=== PATIENT | male | born 1985 | race Caucasian/White ===

== ENCOUNTER → 2025-06-15 16:29 | Outpatient (REF) | payer OTHER, SELFPAY | LOC: RAD 16:29 | PROVIDERS: ATTENDING PHYSICIAN Physician Assistant | DX: R10.A1 Flank pain, right side (principal) | CPT/HCPCS: 72072; 72110 ==

== ENCOUNTER 2025-08-04 18:35 | Emergency (ER) | payer OTHER, SELFPAY ==
[2025-08-04 18:37] VITALS: BP 121/73
--- NOTE | 2025-08-04 19:20 | ED.GENMED ---
History of Present Illness
General
Chief Complaint: Male Genito-Urinary Symptoms
Source: patient
Time Seen by Provider: 08/04/25 19:11
History of Present Illness
History of Present Illness:
39-year-old male presents to the emergency room complaining of pain, swelling to the right testicle. Patient had a vasectomy about [address] Hoang. Yesterday while playing with his daughter she inadvertently bumped into his right
testicle. He had some minor pain at the time but really did not think much of it. During the night he began having more pain and noted some swelling. He went to work today but was having significant discomfort throughout the day. This prompted
him to come to the emergency room for further evaluation. Patient denies any medical problems. Does not take any medications.
Past History
Past History
ED Past Medical History: None
ED Past Surgical History: None
Social History
Tobacco: Non-smoker
Alcohol: None
Personal:
Living: with family
Employment: Employed
Phy Exam
Physical Exam
Physical Exam:
General: Awake, Alert, Oriented X3. No acute distress.
Vitals: unremarkable
Head: Atraumatic
Eyes: Pupils equal, EOMI
Neck: Trachea midline
Abd: Soft, Nontender, No pulsatile mass
Genitalia: Penis appears normal. Left hemiscrotum appears normal. Right hemiscrotum does have some erythema and redness. Perhaps some mild ecchymosis. The testicle itself feels enlarged and is moderately tender.
Neuro: Nonfocal
Skin: Warm, dry, no rash
Extremities: pulses equal b/l, no edema
Course
Orders/Labs/Results
Orders:
Orders
08/04/25 19:19
US Scrotum Urgent
Comment:
Reason For Exam: pain/swelling r testicle minor trauma rec vasectom
08/04/25 19:20
Ibuprofen [Motrin] 400 mg PO NOW STA
Vital Signs
Initial and Last Documented VS:
Initial Vital Signs
Temp Pulse Resp BP Pulse Ox
98.0 F 88 16 121/73 98
08/04/25 18:37 08/04/25 18:37 08/04/25 18:37 08/04/25 18:37 08/04/25 18:37
Last Documented Vital Signs
Temp Pulse Resp BP Pulse Ox
98.0 F 79 16 124/77 99
08/04/25 18:37 08/04/25 19:23 08/04/25 18:37 08/04/25 19:23 08/04/25 19:23
MDM/Problems Addressed
Differential Diagnosis Includes:
Scrotal hematoma, fractured testicle, epididymal cyst, hydrocele
MDM/Problems Addressed:
Patient presents with scrotal pain. His exam shows some enlargement discomfort of the right testicle. Ultrasound shows no acute abnormality. Treat with Tylenol, Motrin, supportive underwear. Follow-up with the discharge if no better in the next
2 or 3 days.
*Radiology
Radiology exam reviewed: radiology read reviewed
*Pulse Oximetry
SaO2: 98
Oxygen Mode of Delivery: Room air
Patient hypoxic: no
*Critical Care Note
Total Time (30-74mins, 75-104mins- exclusive of procedures): Not Applicable
ED Attending Note
-
Portions of this chart may have been created with voice recognition software.� Occasional wrong word or��sound alike� substitutions may have occurred due to the inherent limitations of voice recognition software.
Discharge Plan
Departure
Patient Disposition: Home (Routine Discharge)
Date of Disposition: 08/04/25
Time of Disposition: 20:19
Patient with high blood pressure during this ER visit?: No
Condition: Good
Discharge Problem:
Contusion of scrotum
Instructions: Testicular Injury
Prescriptions:
No Action
No Current Medications
0
Referrals:
Boubacar Pizarro MD [Family Provider, Family Practice]
Eagle Hoang MD [Active, Urology]
Activity Restrictions/Additional Instructions:
follow up with dr. Hoang if the pain is not improving over the next couple of days.
Interventions
Interventions:
*General Assessment Last Done: 08/04/25 18:37
*Neglect/Abuse Screening Last Done: 08/04/25 18:37
*ED COVID-19 Vaccine History Last Done: 08/04/25 18:37
*ED Influenza Vaccine History Last Done: 08/04/25 18:37
[facility] Risk Assessment Tool Last Done: 08/04/25 19:21
*Risk Screen - Suicide (C-SSRS) Last Done: 08/04/25 19:16
*Nursing Disposition Last Done: 08/04/25 20:46
ED-Male Genitourinary Assessment Last Done: 08/04/25 19:16
Discharge Date and Time
Discharge Date/Time: 08/04/25 20:46
Print Language: CYPRIOT
[2025-08-04 19:21] VITALS: BMI 21.8
[2025-08-04 19:23] VITALS: BP 124/77
[2025-08-04] MEDS: MOTRIN 400 MG PO (19:27)
== END 2025-08-04 20:46 | disposition home or self-care (01) ==
LOC: EMR 18:35
PROVIDERS: EMERGENCY PHYSICIAN Emergency Medicine; FAMILY PHYSICIAN Family Medicine
DX: S30.22XA Contusion of scrotum and testes, initial encounter (principal); W50.0XXA Accidental hit or strike by another person, initial encounter
CPT/HCPCS: 99284; 76870; 93976